=== PATIENT | male | born 1990 | race Hispanic/Latino ===

== ENCOUNTER 2016-08-04 09:57 | Emergency (ER) | payer BC, OTHER ==
[2016-08-04 10:06] VITALS: RESP 18; TEMP 97.9; O2SAT 99; BMI 29.5
[2016-08-04] MEDS ORDERED: diaZEpam 10 mg/2 ml Inj IVP ONE (10:55)
--- NOTE | 2016-08-04 11:07 | ED PDOC ---
Arrival/HPI - General Chief Complaint: Back Pain Time Seen by Provider: 08/04/16 10:54 Historian: Patient - History of Present Illness Narrative History of Present Illness (Text): 08/04/16 11:04 25yo male BIBA for complaint of severe lower crampy back pain. Pain is nonradiating and constant worse with any movement. Patient states pain started this morning when he was lifting object at work. States he have had back pain in the past, but not this severe. Denies urinary/fecal incontinence, saddle anesthesia, focal weakness, abdominal pain, urinary symptoms, hematuria, any other complaint. Past Medical History - Provider Review Nursing Documentation Reviewed: Yes - Tetanus Immunization Tetanus Immunization: Unknown - Pulmonary Hx Asthma: Yes - Psychiatric Hx Depression: No Hx Emotional Abuse: No Hx Physical Abuse: No Hx Substance Use: No - Past Surgical History Past Surgical History: No Previous - Suicidal Assessment Feels Threatened In Home Enviroment: No Family/Social History - Physician Review Nursing Documentation Reviewed: Yes Family/Social History: Unknown Family HX Smoking Status: Unknown If Ever Smoked Hx Alcohol Use: Yes Hx Substance Use: No Hx Substance Use Treatment: No Allergies/Home Meds Allergies/Adverse Reactions: Allergies No Known Allergies Allergy (Verified 09/16/12 15:39) Home Medications: Home Meds Medication Instructions Recorded Confirmed Montelukast Sodium [Singulair] 10 mg PO DAILY 09/16/12 09/16/12 Review of Systems - Physician Review All systems were reviewed & negative as marked: Yes - Review of Systems Constitutional: Normal Eyes: Normal ENT: Normal Respiratory: Normal Cardiovascular: Normal Gastrointestinal: Normal Genitourinary Male: Normal Musculoskeletal: Back Pain Skin: Normal Neurological: Normal Endocrine: Normal Hemo/Lymphatic: Normal Psychiatric: Normal Physical Exam Vital Signs Reviewed: Yes Vital Signs Temp Pulse Resp BP Pulse Ox 08/04/16 12:51 62 18 161/80 H 99 08/04/16 11:13 65 18 162/75 H 99 08/04/16 10:05 97.9 F 69 18 166/79 H 99 Temperature: Afebrile Blood Pressure: Normal Pulse: Regular Respiratory Rate: Normal Appearance: Positive for: Well-Appearing, Non-Toxic, Comfortable Pain Distress: None Mental Status: Positive for: Alert and Oriented X 3 - Systems Exam Head: Present: Atraumatic, Normocephalic Pupils: Present: PERRL Extroacular Muscles: Present: EOMI Conjunctiva: Present: Normal Mouth: Present: Moist Mucous Membranes Neck: Present: Normal Range of Motion Respiratory/Chest: Present: Clear to Auscultation, Good Air Exchange. No: Respiratory Distress, Accessory Muscle Use Cardiovascular: Present: Regular Rate and Rhythm, Normal S1, S2. No: Murmurs Abdomen: Present: Normal Bowel Sounds. No: Tenderness, Distention, Peritoneal Signs Back: Present: Midline Tenderness, Paraspinal Tenderness, Pain with Leg Raise (B /L) Upper Extremity: Present: Normal Inspection. No: Cyanosis, Edema Lower Extremity: Present: Normal Inspection. No: Edema Neurological: Present: GCS=15, CN II-XII Intact, Speech Normal Skin: Present: Warm, Dry, Normal Color. No: Rashes Psychiatric: Present: Alert, Oriented x 3, Normal Insight, Normal Concentration Medical Decision Making ED Course and Treatment: 08/04/16 15:31 On re evaluation pt's pain improved. He was ambulatory. Had no focal neurological deficit. LS xray - Negative Result was DW the pt. He was DC home with NSAID and muscle relaxer for MS pain. Advised to rest, apply warm compress to area and f/u with his PMD. TRT ED for any new or worsening symptoms. - RAD Interpretation Radiology Orders: 08/04/16 10:55 LS SPINE WITH OBL > 18 YRS OLD [RAD] Stat - Medication Orders Current Medication Orders: Discontinued Medications Diazepam (Valium) 5 mg IVP ONCE ONE PRN Reason: Protocol Stop: 08/04/16 10:56 Last Admin: 08/04/16 11:18 Dose: 5 mg Ketorolac Tromethamine (Toradol) 30 mg IVP STAT STA Stop: 08/04/16 10:55 Last Admin: 08/04/16 11:17 Dose: 30 mg Disposition/Present on Arrival - Present on Arrival Any Indicators Present on Arrival: No History of DVT/PE: No History of Uncontrolled Diabetes: No Urinary Catheter: No History of Decub. Ulcer: No History Surgical Site Infection Following: None - Disposition Have Diagnosis and Disposition been Completed?: Yes Diagnosis: Back pain Disposition: HOME/ ROUTINE Disposition Time: 12:15 Patient Plan: Discharge Condition: STABLE Discharge Instructions (ExitCare): Acute Low Back Pain (ED) Additional Instructions: Follow up with your Doctor Apply warm compress and rest Return to ED for any new or worsening symptoms Prescriptions: Cyclobenzaprine [Cyclobenzaprine HCl] 10 mg PO TID #10 tab Ibuprofen [Motrin Tab] 600 mg PO Q6 #20 tab Referrals: PCP,NO [Primary Care Provider] - Follow up with primary Forms: WORK NOTE
--- NOTE | 2016-08-04 11:51 | RAD ---
PROCEDURE: Radiographs of the Lumbar Spine. HISTORY: back pain COMPARISON: No prior. FINDINGS: BONES: Normal alignment. No listhesis. No fracture. DISC SPACES: Unremarkable. OTHER FINDINGS: None. IMPRESSION: Unremarkable radiographs of the lumbar spine.
[2016-08-04 14:05] VITALS: BP 161/80; PULSE 62
== END 2016-08-04 12:51 | disposition home or self-care (01) ==
LOC: ED 09:57
DX: M54.5 Low back pain (principal)
CPT/HCPCS: 72110; 96374; 96375; 99284; J1885; J3360